=== PATIENT | male | born 1980 | race Caucasian/White ===

== ENCOUNTER 2018-12-18 19:24 | Emergency (ER) | payer BC, OTHER ==
[~2018-12-18] VITALS: Ht 182.9 cm; Wt 89.8 kg
[~2018-12-18 19:24] MED LIST: BENA10TA25 PO; METO50TA20 PO; SERT50TA PO; SIMV40TA1 PO
[2018-12-18 19:40] VITALS: BP 161/93
--- NOTE | 2018-12-18 21:46 | NUR ---
PT AMBULATED TO BED 07.
--- NOTE | 2018-12-18 21:58 | NUR ---
C/O 5/10 [place], COUGH THAT CAUSES CHEST DISCOMFORT, OFF/ON LIGHTHEADEDNESS, SUBJECTIVE FEVER X 2 DAYS. PMH-- DM, HTN RX-- BENAZEPRIL 20 MG DAILY
[2018-12-18 22:38] VITALS: BP 156/98
--- NOTE | 2018-12-18 22:38 | NUR ---
Patient discharged with v/s stable. Written and verbal after care instructions given and explained. Patient alert, oriented and verbalized understanding of instructions. Ambulatory with steady gait. All questions addressed prior to discharge. ID band removed. Patient advised to follow up with PMD. Rx of Promethazine, Motrin, Azithromycin given. Patient educated on indication of medication including possible reaction and side effects. Opportunity to ask questions provided and answered.
== END 2018-12-18 22:38 | disposition home or self-care (01) ==
LOC: MED 19:24
DX: J02.8 Acute pharyngitis due to other specified organisms (principal); B96.89 Other specified bacterial agents as the cause of diseases classified elsewhere; E11.9 Type 2 diabetes mellitus without complications; I10 Essential (primary) hypertension; Z79.899 Other long term (current) drug therapy
CPT/HCPCS: 99283

== ENCOUNTER 2023-02-23 21:31 | Emergency (ER) | payer BC ==
[~2023-02-23] VITALS: Ht 182.9 cm; Wt 83.9 kg
[~2023-02-23 21:31] MED LIST changes: +SIMV-373 PO; -SIMV40TA1 PO
[2023-02-23 21:40] VITALS: BP 133/90; PULSE 76; RESP 16; TEMP 97.7; O2SAT 99
[2023-02-23 22:43] LABS: APPEARANCE,URINE CLEAR (CLEAR); BILIRUBIN,URINE NEGATIVE (NEGATIVE); BLOOD, URINE NEGATIVE (NEGATIVE); COLOR,URINE ORANGE (YELLOW); LEUKOCYTE ESTERASE ,URINE TRACE (NEGATIVE); NITRITE, URINE NEGATIVE (NEGATIVE); PROTEIN,URINE NEGATIVE (NEGATIVE); UGLUCOSE 2+ (NEGATIVE); UROBILINOGEN,URINE 0.2 EU/dL (0.2 - 1)
[2023-02-23 22:45] LABS: BACTERIA,URINE 10-30 (MOD) /HPF (None Seen); MUCUS,URINE 1+ /LPF (None Seen); RBC,URINE 0-5 /HPF (0-5); SQUAMOUS EPITHELIAL CELL,UR 0-3 (FEW) /LPF (0-3 (FEW))
[2023-02-23] MEDS ORDERED: PHEN-1877 PO (23:10)
[2023-02-23] MEDS ORDERED: IBUP-2213 PO (23:10)
[2023-02-23] MEDS ORDERED: CIPR500T4 PO (23:10)
[2023-02-23 23:30] VITALS: BP 130/82; PULSE 76; RESP 16; TEMP 97.7; O2SAT 99
== END 2023-02-23 23:30 | disposition home or self-care (01) ==
LOC: MED 21:31
DX: N39.0 Urinary tract infection, site not specified (principal); E11.9 Type 2 diabetes mellitus without complications; I10 Essential (primary) hypertension; Z79.899 Other long term (current) drug therapy
CPT/HCPCS: 81001; 87086; 87491; 99283